=== PATIENT | female | born 2000 | race Caucasian/White ===

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

== ENCOUNTER 2022-04-29 17:37 | Emergency (ER) | payer SELFPAY ==
[2022-04-29 17:38] VITALS: BP 132/83; PULSE 107; RESP 16; TEMP 36.6; O2SAT 97; BMI 31.8
--- NOTE | 2022-04-29 18:23 | EDS_ITS ---
HPI HPI - GI History of Present Illness Chief Complaint: Abd Pain Abdominal Pain/Flank Pain Onset: Weeks Context: Gradual Onset Timing: Intermittent and Lasts (Hours) Quality: Cramping Location: RLQ and LLQ Worsened by: - (Having a bowel movement) Relieved by: Nothing Nausea/Vomiting/Emesis GI Symptom: Positive for Nausea; Negative for Vomiting Diarrhea/Melena/Hematochezia GI Symptom: Negative for Diarrhea, Melena or Hematochezia Associated Symptoms Associated Symptoms: Positive for Dysuria; Negative for Frequency or Hematuria LMP: Current Narrative Narrative: Patient presents with abdominal pain that has been getting worse over the past few weeks. Patient states it gradually got worse. Patient states it is intermittent. Patient states that sometimes it would last for several hours. Patient describes her pain as cramping. Patient states pain is over the lower abdomen. Patient states it is worse whenever she tries to have a bowel movement. Patient admits to some subjective chills whenever she tries to have a bowel movement. Patient admits to nausea but denies any vomiting. Patient denies any diarrhea, melena, or hematochezia. Patient admits to some mild dysuria. Patient states she is currently on her menstrual cycle. [facility] Medical History Anxiety Home Medications cephalexin 500 mg capsule 500 mg PO Q6 #12 CAPSULES 04/29/22 [Rx Last Taken Unknown] norgestimate 0.25 mg-ethinyl estradiol 35 mcg tablet (Sprintec (28)) 1 tab PO DAILY 04/29/22 [History Last Taken Unknown] Allergy/AdvReac Type Severity Reaction Status Date / Time No Known Allergies Allergy Verified 04/29/22 17:38 Social History Smoking Status: Current every day smoker tobacco type: cigarettes EXAM Physical Exam Const Vital Signs: 04/29/22 17:38 Temperature 97.9 F Temperature Source Temporal Pulse Rate 107 H Respiratory Rate 16 Blood Pressure 132/83 H Blood Pressure Mean 99 Pulse Ox 97 Oxygen Delivery Method Room Air Positive well nourished and well developed General Appearance ED: well developed HEENT Reports moist mucous membranes Neck supple and no JVD Resp normal respiratory effort and clear to auscultation bilaterally Cardio regular rate, regular rhythm and no murmurs GI normal to inspection, nondistended, normoactive bowel sounds Palpation: soft and tender epigastric, LLQ, RLQ, LUQ, RUQ, periumbilical and suprapubic; Negative for guarding or rebound tenderness present Extremity normal to inspection General Extremety ED: Negative for edema or tenderness General Extremity: Negative for edema Neuro oriented x3, CN's II-XII intact bilaterally and no sensory deficits noted Sensorium / Orientation: alert Motor Exam: strength 5/5 throughout Psych mental status grossly normal Skin no rashes or lesions noted MDM MDM MDM Narrative Medical decision making narrative: Patient was given IV fluids and Zofran here. CBC shows a slight leukocytosis of 11.9. Hemoglobin was 11.1 and hematocrit 35.1. Platelets were normal. Comprehensive metabolic profile showed mild hypokalemia of 3.2. Anion gap was normal. Glucose was normal. Lipase was normal. Serum hCG was negative. Urinalysis shows a leukocyte esterases of 100 with 10-25 white blood cells and 1+ bacteria. Urine culture was ordered. Patient was given a prescription for Keflex. Patient was instructed to follow-up with her primary care physician in 3 to 5 days for reevaluation. Patient was also given a prescription for omeprazole. Patient understood and was agreeable with the plan. All questions were answered. Lab Data Attestation: I reviewed the patient's lab results. Labs: Laboratory Results - last 24 hr 04/29/22 04/29/22 04/29/22 18:15 18:15 18:15 WBC 11.9 H RBC 4.46 Hgb 11.1 L Hct 35.1 L MCV 78.7 L MCH 24.9 L MCHC 31.6 L RDW Std Deviation 50.5 H RDW Coeff of Nahum 17.6 H Plt Count 321 MPV 10.6 Immature Gran % (Auto) 0.300 Neut % (Auto) 70.5 H Lymph % (Auto) 18.9 L [place] % (Auto) 6.2 Eos % (Auto) 3.8 Baso % (Auto) 0.3 Absolute Neuts (auto) 8.4 H Absolute Lymphs (auto) 2.25 Nucleated RBC % 0 Sodium 140 Potassium 3.2 L Chloride 109 H Carbon Dioxide 25.0 Anion Gap 6 BUN 9 Creatinine 0.79 Estim Creat Clear Calc 93.97 Est GFR (MDRD) Af Amer 119 Est GFR (MDRD) Non-Af 98 BUN/Creatinine Ratio 11.4 Glucose 114 H Calcium 8.8 Total Bilirubin 0.30 AST 21 ALT 23 Alkaline Phosphatase 50 Total Protein 7.5 Albumin 3.4 Globulin 4.1 Albumin/Globulin Ratio 0.8 L Lipase 65 L Serum , Qual NEGATIVE Urine Color Urine Clarity Urine pH Ur Specific [place] Urine Protein Urine Glucose (UA) Urine Ketones Urine Occult Blood Urine Nitrite Urine Bilirubin Urine Urobilinogen Ur Leukocyte Esterase Urine RBC Urine WBC Ur Squamous Epith Cells Urine Bacteria Urine Mucus 04/29/22 18:15 WBC RBC Hgb Hct MCV MCH MCHC RDW Std Deviation RDW Coeff of [place]um Plt Count MPV Immature Gran % (Auto) Neut % (Auto) Lymph % (Auto) [place] % (Auto) Eos % (Auto) Baso % (Auto) Absolute Neuts (auto) Absolute Lymphs (auto) Nucleated RBC % Sodium Potassium Chloride Carbon Dioxide Anion Gap BUN Creatinine Estim Creat Clear Calc Est GFR (MDRD) Af Amer Est GFR (MDRD) Non-Af BUN/Creatinine Ratio Glucose Calcium Total Bilirubin AST ALT Alkaline Phosphatase Total Protein Albumin Globulin Albumin/Globulin Ratio Lipase Serum , Qual Urine Color Yellow Urine Clarity Clear Urine pH 5.0 Ur Specific [place] 1.025 Urine Protein 30 H Urine Glucose (UA) Normal Urine Ketones 15 H Urine Occult Blood 250 H Urine Nitrite Negative Urine Bilirubin 1 H Urine Urobilinogen 1 H Ur Leukocyte Esterase 100 H Urine RBC 0-5 SEEN Urine WBC 10-25 SEEN Ur Squamous Epith Cells 0-5 SEEN Urine Bacteria 1+ Urine Mucus 0 SEEN Discharge Plan Triage Chief Complaint: Abd Pain ED Provider: Ralph Zamudio Dx/Rx/DC Orders Clinical Impression: Upper abdominal pain, Urinary tract infection Instructions: ED Abdominal Pain Unkn Cause Fem, ED CYSTITIS Female Adult Prescriptions: New cephalexin [cephalexin] 500 mg capsule 500 mg PO Q6 Qty: 12 0RF No Action norgestimate-ethinyl estradiol [Sprintec (28)] 0.25-35 mg-mcg Tablet 1 tab PO DAILY Stand Alone Forms: ED Work / School Excuse Primary Care Provider: Care Physician,No Primary Referrals: Linsey Ríos MD [STAFF PHYSICIAN] - 5-7 Days Care Physician,No Primary [Primary Care Provider] - Disposition Disposition: Home, Self Care
[2022-04-29 18:33] LABS: Mucous, Urine 0 SEEN /hpf (<or=2+)
[2022-04-29] MEDS: Ondansetron 4 MG/2 ML Vial IV (18:33)
[2022-04-29] MEDS: 0.9% Normal Saline 1,000 ML 1000 ML IV (18:33)
[2022-04-29 18:35] LABS: Absolute Lymphocyte Count 2.25 X10^3/uL (0.83-4.51); Absolute Neutrophil Count 8.4 X10^3/uL (2.0-7.7); Basophil# 0.03 X10^3/uL; Basophil% 0.3 % (0-1); Eosinophil# 0.45 X10^3/uL; Eosinophils% 3.8 % (0-5); Hematocrit 35.1 % (37-47); Hemoglobin 11.1 g/dL (12.0-15.0); Lymphocyte # 2.25 X10^3/ul (0.83-4.51); Lymphocyte % 18.9 % (19-41); Mean Corp Hgb Conc 31.6 g/dL (32-36); Mean Corpuscular Hgb 24.9 pg (27.0-32.0); Mean Corpuscular Volume 78.7 fL (81-99); Mean Platelet Vol. 10.6 fl (6.2-12.0); Monocyte# 0.74 X10^3/uL; Monocyte% 6.2 % (0-10); NRBC Flagged by Analyzer 0 % (0-5); Neutrophil # 8.39 X10^3/uL (2.7-7.7); Neutrophil % 70.5 % (47-70); Platelet Count 321 K/mm3 (150-450); RBC Distribution Width CV 17.6 % (11.6-14.6); RBC Distribution Width SD 50.5 fl (35.1-43.9); Red Blood Count 4.46 M/mm3 (4.2-5.4); White Blood Count 11.9 K/mm3 (4.4-11.0)
[2022-04-29 18:43] LABS: Color, Urine Yellow (Yellow); Glucose, Dipstick Normal (Normal); Ketone-Dipstick 15 mg/dl (Negative); Leukocyte Esterase-Dipstick 100 /ul (Negative); Nitrite-Dipstick Negative (Negative); Occult Blood-Urine 250 /ul (Negative); Protein-Dipstick 30 mg/dl (Negative); Specific Gravity, Urine 1.025 (1.002-1.030); Urine Clarity Clear (Clear); Urine Urobilinogen 1 mg/dl (Normal)
[2022-04-29 18:45] LABS: Urine Bilirubin Dipstick 1 mg/dL (Negative)
[2022-04-29 18:54] LABS: ALB/GLOB Ratio 0.8 RATIO (0.9-2.4); AST(SGOT) 21 U/L (15-37); Alanine Aminotransfer ALT/SGPT 23 U/L (13-56); Albumin, Serum 3.4 g/dL (3.2-5.0); Alkaline Phosphatase 50 U/L (45-117); Anion Gap 6 (5-15); BUN 9 mg/dL (7-18); BUN/Creat Ratio 11.4 RATIO (10-20); Bacteria 1+ /hpf (None Seen); Calcium,Total 8.8 mg/dL (8.5-10.1); Chloride 109 mmol/L (98-107); Creatinine, Serum 0.79 mg/dL (0.55-1.02); EST Glomerular Filtration Rate 98 mL/min (>60); Est Glom Filt Rate - Afr Amer 119 mL/min (>60); Estimated Creatinine Clearance 93.97 ml/min; Globulin 4.1 g/dL (2.2-4.2); Glucose 114 mg/dL (74-106); Lipase 65 U/L (73-393); Potassium 3.2 mmol/L (3.5-5.1); Protein, Total 7.5 g/dL (6.4-8.2); Red Blood Cells-Urine 0-5 SEEN /hpf (0-5); Sodium Level 140 mmol/L (136-145); Squamous Epithelial Cells - UA 0-5 SEEN /hpf (5-10); White Blood Cells 10-25 SEEN /hpf (0-5)
[2022-04-29 18:57] LABS: Internal QC Validated? YES +Cl - CLEAR BKGD; Pregnancy, Serum, hCG Quali. NEGATIVE Negative
[2022-04-29 19:24] VITALS: RESP 16
[2022-04-29] MEDS: Cephalexin 500 MG Capsule PO (19:31)
== END 2022-04-29 19:36 | disposition home or self-care (01) ==
PROVIDERS: Emergency Provider Emergency Medicine; Visit Provider Emergency Medicine
DX: N39.0 Urinary tract infection, site not specified (principal); F17.210 Nicotine dependence, cigarettes, uncomplicated; R11.0 Nausea; R30.0 Dysuria
CPT/HCPCS: 80053; 81001; 83690; 84703; 85025; 87086; 99283; J7030; A4216; J2405

== ENCOUNTER 2022-05-03 16:51 | Emergency (ER) | payer SELFPAY ==
[2022-05-03 16:53] VITALS: BP 132/91; PULSE 109; RESP 16; TEMP 37; O2SAT 98; BMI 31.8
[2022-05-03 16:55] VITALS: BP 132/91; PULSE 109; RESP 16; TEMP 37; O2SAT 98
--- NOTE | 2022-05-03 17:31 | CT_ITS ---
EXAM: CT ABDOMEN AND PELVIS WITHOUT INTRAVENOUS CONTRAST CLINICAL INDICATION: Pain TECHNIQUE: Helically acquired images were obtained of the abdomen and pelvis without intravenous contrast. This CT exam was performed using one or more of the following dose reduction techniques: automated exposure control, adjustment of the mA and/or kV according to patient size, and/or use of iterative reconstruction technique. This report was created using [employer] report generation technology. RADIATION DOSE: CTDIvol = 7.49 mGy, DLP = 381.79 mGy-cm. COMPARISON: 10/19/2021. FINDINGS: LOWER THORAX: Unremarkable. Lung bases are clear. No cardiomegaly. No significant pericardial effusion. ABDOMEN: LIVER: Unremarkable. Homogeneous. GALLBLADDER AND BILE DUCTS: Unremarkable. No calcified gallstones. No gallbladder distention or wall edema. No intra- or extrahepatic biliary ductal dilation. PANCREAS: Unremarkable. No focal cystic mass. SPLEEN: Unremarkable. Normal size without focal cystic or solid mass. ADRENALS: Unremarkable. No nodules. KIDNEYS AND URETERS: Unremarkable. Normal renal size and position. No hydronephrosis. STOMACH AND BOWEL: Unremarkable. No stomach or bowel distention. No focal inflammatory change. PELVIS: APPENDIX: Normal appendix. BLADDER: Unremarkable. REPRODUCTIVE: Previously noted left-sided tubo-ovarian abscess has resolved. ABDOMEN and PELVIS: INTRAPERITONEAL SPACE: Unremarkable. No ascites or other fluid collection. No free air. BONES/JOINTS: Unremarkable. No suspicious lytic or blastic abnormality. SOFT TISSUES: Unremarkable. No discrete abdominal or pelvic wall hernia. VASCULATURE: Unremarkable. Abdominal aorta is non-dilated. LYMPH NODES: Unremarkable. No enlarged lymph nodes. CT/Abdomen/Pelvis without Cont IMPRESSION: 1. Previously noted left-sided tubo-ovarian abscess has resolved. 2. No acute abdominal pelvic abnormality. Electronically Signed: Mac Badillo MD at 19:35 EDT ,
--- NOTE | 2022-05-03 17:32 | EDS_ITS ---
HPI HPI - GI History of Present Illness Chief Complaint: Flank Pain Detail of Chief Complaint: Abdominal pain Informant: patient Abdominal Pain/Flank Pain Maximum Severity: 05/27 Narrative Narrative: Patient presents to the emergency department complaint of abdominal pain that she said for about a month and a half off and on. Patient states that she started taking oral contraceptive Sprintec and ever since that she did that she noticed more discomfort to the right side of her abdomen. Patient was seen in the emergency department 4 days ago for abdominal pain and had lab work-up and diagnosed with a UTI and started on Keflex. Patient states she started having vaginal bleeding a week ago and continues to bleed and passing small clots. She does not have an [facility] fevers. She denies diarrhea. She denies blood in her stool or black tarry stool. No history of kidney stones. [facility] Medical History Anxiety Home Medications cephalexin 500 mg capsule 500 mg PO Q6 #12 CAPSULES 04/29/22 [Rx Last Taken Unknown] norgestimate 0.25 mg-ethinyl estradiol 35 mcg tablet (Sprintec (28)) 1 tab PO DAILY 04/29/22 [History Last Taken Unknown] Allergy/AdvReac Type Severity Reaction Status Date / Time No Known Allergies Allergy Verified 05/03/22 16:55 Social History Smoking Status: Current every day smoker tobacco type: cigarettes ROS ROS ED Review of Systems ROS Unobtainable: other Constitutional Constitutional ED: Reports lethargy; Denies chills, fever(s), sweats or weight loss Eyes Eyes: Denies blurry vision, change in vision or diplopia ENT ENT ED: Denies rhinorrhea or sore throat Cardiovascular Cardiovascular: Reports chest pain and racing heartbeat; Denies orthopnea Respiratory/Chest Respiratory/Chest: Reports dyspnea and dyspnea on exertion; Denies cough, orthopnea or sputum Gastrointestinal Gastrointestinal: Reports abdominal pain; Denies diarrhea, nausea or vomiting Genitourinary Genitourinary ED: Reports other Details: Vaginal bleeding ; Denies dysuria, hematuria or urinary frequency Musculoskeletal Musculoskeletal: Denies arthralgias, back pain, myalgias or neck pain Integumentary Denies abscess, Abrasions or rash Neurologic Neurologic: Denies headache(s) or weakness Psychiatric Psychiatric: Denies anxiety, depression or suicidal thoughts Endocrine Endocrinology: Denies polydipsia, polyphagia or polyuria Hematologic/Lymphatic Hematologic/Lymphatic: Denies easy bleeding, easy bruising or lymphadenopathy Allergic/Immunologic Allergic/Immunologic ED: Denies mouth swelling, tongue swelling or urticaria EXAM Physical Exam Const Vital Signs: 05/03/22 16:53 05/03/22 16:55 05/03/22 17:58 Temperature 98.6 F 98.6 F 98.6 F Temperature Source Temporal Temporal Temporal Pulse Rate 109 H 109 H 109 H Respiratory Rate 16 16 16 Blood Pressure 132/91 H 132/91 H 132/91 H Blood Pressure Mean 104 Pulse Ox 98 98 98 Oxygen Delivery Method Room Air Room Air Room Air 05/03/22 19:00 Temperature Temperature Source Pulse Rate 71 Respiratory Rate 16 Blood Pressure 98/67 Blood Pressure Mean 77 Pulse Ox 99 Oxygen Delivery Method Room Air Positive well nourished and well developed General Appearance ED: well developed and NAD HEENT Reports TM's clear and moist mucous membranes normocephalic and atraumatic; Negative for trauma or tenderness Tympanic Membrane ED: Yes TM's clear Eyes PERRL and EOMs intact bilaterally General Eye ED: Negative for pale conjunctiva or scleral icterus Neck no lymphadenopathy, supple and no JVD General: Negative for tenderness Chest Wall inspection of chest normal and palpation of chest normal Chest: Negative for tenderness Resp normal respiratory effort and clear to auscultation bilaterally Effort and Inspection: Negative for respiratory distress or pain with movement Auscultation: Negative for rhonchi, wheezes or diminished lung sounds Cardio regular rate, regular rhythm, S1 normal heart sound, S2 normal heart sound and no murmurs Peripheral Pulses: pulses 2+ throughout GI normal to inspection, nondistended, normoactive bowel sounds, soft to palpation, non-distended and no masses GI Narrative: Tenderness palpation over the right lower quadrant with some guarding. She also some mild CVA tenderness on the right. There is no rebound, rigidity, or frail signs. Back/Spine no CVA tenderness and no thoracic nor lumbar tenderness Extremity normal to inspection General Extremety ED: Negative for edema General Extremity: Negative for edema Neuro oriented x3, CN's II-XII intact bilaterally, no sensory deficits noted and gait normal Sensorium / Orientation: awake, alert, oriented to person, oriented to place and oriented to time Motor Exam: strength 5/5 throughout and strength abnormal Psych mental status grossly normal Skin no rashes or lesions noted and no wounds MDM MDM MDM Narrative Medical decision making narrative: IV line established on arrival. Patient was given Toradol. Lab work-up was unremarkable. hCG was negative. Urinalysis was normal. CT scan of the M pelvis without contrast obtained showed no acute disease process. This point etiology of her pain is unclear. Patient will be given referral to [facility] for follow-up. Patient advised to return if worsening pain, fever, vomiting, or condition should worsen anyway. Lab Data Attestation: I reviewed the patient's lab results. Labs: Laboratory Results - last 24 hr 05/03/22 05/03/22 05/03/22 17:56 17:56 17:56 WBC 8.3 RBC 4.39 Hgb 11.2 L Hct 35.6 L MCV 81.1 MCH 25.5 L MCHC 31.5 L RDW Std Deviation 50.7 H RDW Coeff of [place] 17.2 H Plt Count 328 MPV 11.6 Immature Gran % (Auto) 0.200 Neut % (Auto) 55.4 Lymph % (Auto) 26.5 [place] % (Auto) 9.6 Eos % (Auto) 7.7 H Baso % (Auto) 0.6 Absolute Neuts (auto) 4.6 Absolute Lymphs (auto) 2.21 Nucleated RBC % 0 Sodium 141 Potassium 3.8 Chloride 109 H Carbon Dioxide 27.0 Anion Gap 5 BUN 9 Creatinine 0.75 Estim Creat Clear Calc 98.98 Est GFR (MDRD) Af Amer 126 Est GFR (MDRD) Non-Af 104 BUN/Creatinine Ratio 12.0 Glucose 95 Lactic Acid 1.5 Calcium 9.0 Total Bilirubin 0.30 AST 22 ALT 20 Alkaline Phosphatase 52 Total Protein 7.1 Albumin 3.1 L Globulin 4.0 Albumin/Globulin Ratio 0.8 L Serum , Qual Urine Color Urine Clarity Urine pH Ur Specific [place] Urine Protein Urine Glucose (UA) Urine Ketones Urine Occult Blood Urine Nitrite Urine Bilirubin Urine Urobilinogen Ur Leukocyte Esterase Urine RBC Urine WBC Ur Squamous Epith Cells Urine Bacteria Urine Mucus 05/03/22 05/03/22 17:56 17:57 WBC RBC Hgb Hct MCV MCH MCHC RDW Std Deviation RDW Coeff of [place] Plt Count MPV Immature Gran % (Auto) Neut % (Auto) Lymph % (Auto) [place] % (Auto) Eos % (Auto) Baso % (Auto) Absolute Neuts (auto) Absolute Lymphs (auto) Nucleated RBC % Sodium Potassium Chloride Carbon Dioxide Anion Gap BUN Creatinine Estim Creat Clear Calc Est GFR (MDRD) Af Amer Est GFR (MDRD) Non-Af BUN/Creatinine Ratio Glucose Lactic Acid Calcium Total Bilirubin AST ALT Alkaline Phosphatase Total Protein Albumin Globulin Albumin/Globulin Ratio Serum , Qual NEGATIVE Urine Color Yellow Urine Clarity Clear Urine pH 6.0 Ur Specific [place] 1.015 Urine Protein 15 H Urine Glucose (UA) Normal Urine Ketones Negative Urine Occult Blood 250 H Urine Nitrite Negative Urine Bilirubin Negative Urine Urobilinogen Normal Ur Leukocyte Esterase Negative Urine RBC 5-10 SEEN Urine WBC 0 SEEN Ur Squamous Epith Cells 0 SEEN Urine Bacteria 0 SEEN Urine Mucus 0 SEEN Radiography Diagnostic Testing: Clinical Impression(s) from Imaging Studies Abdomen/Pelvis CT 05/03/22 17:31 IMPRESSION: 1. Previously noted left-sided tubo-ovarian abscess has resolved. 2. No acute abdominal pelvic abnormality. Electronically Signed: Mac Badillo MD at 19:35 EDT , Discharge Plan Triage Chief Complaint: Flank Pain ED Provider: Miriam Smith Dx/Rx/DC Orders Clinical Impression: Abdominal pain Instructions: ED Flank Pain, Uncertain Cause Prescriptions: No Action norgestimate-ethinyl estradiol [Sprintec (28)] 0.25-35 mg-mcg Tablet 1 tab PO DAILY cephalexin [cephalexin] 500 mg capsule 500 mg PO Q6 Qty: 12 0RF Primary Care Provider: Care Physician,No Primary Referrals: Guadalupe Grossman MD [STAFF PHYSICIAN] - 3-5 Days Care Physician,No Primary [Primary Care Provider] - Disposition Disposition: Home, Self Care
[2022-05-03 17:58] VITALS: BP 132/91; PULSE 109; RESP 16; TEMP 37; O2SAT 98
[2022-05-03] MEDS: Ketorolac 30 MG/ML Syringe IV (18:04)
[2022-05-03] MEDS: 0.9% Normal Saline 1,000 ML 125 ML IV (18:04)
[2022-05-03 18:09] LABS: Bacteria 0 SEEN /hpf (None Seen); Mucous, Urine 0 SEEN /hpf (<or=2+); Squamous Epithelial Cells - UA 0 SEEN /hpf (5-10); White Blood Cells 0 SEEN /hpf (0-5)
[2022-05-03 18:11] LABS: Absolute Lymphocyte Count 2.21 X10^3/uL (0.83-4.51); Absolute Neutrophil Count 4.6 X10^3/uL (2.0-7.7); Basophil# 0.05 X10^3/uL; Basophil% 0.6 % (0-1); Eosinophil# 0.64 X10^3/uL; Eosinophils% 7.7 % (0-5); Hematocrit 35.6 % (37-47); Hemoglobin 11.2 g/dL (12.0-15.0); Lymphocyte # 2.21 X10^3/ul (0.83-4.51); Lymphocyte % 26.5 % (19-41); Mean Corp Hgb Conc 31.5 g/dL (32-36); Mean Corpuscular Hgb 25.5 pg (27.0-32.0); Mean Corpuscular Volume 81.1 fL (81-99); Mean Platelet Vol. 11.6 fl (6.2-12.0); Monocyte% 9.6 % (0-10); NRBC Flagged by Analyzer 0 % (0-5); Neutrophil # 4.62 X10^3/uL (2.7-7.7); Neutrophil % 55.4 % (47-70); Platelet Count 328 K/mm3 (150-450); RBC Distribution Width CV 17.2 % (11.6-14.6); RBC Distribution Width SD 50.7 fl (35.1-43.9); Red Blood Count 4.39 M/mm3 (4.2-5.4); White Blood Count 8.3 K/mm3 (4.4-11.0)
[2022-05-03 18:12] LABS: Color, Urine Yellow (Yellow); Glucose, Dipstick Normal (Normal); Ketone-Dipstick Negative (Negative); Leukocyte Esterase-Dipstick Negative /ul (Negative); Nitrite-Dipstick Negative (Negative); Occult Blood-Urine 250 /ul (Negative); Protein-Dipstick 15 mg/dl (Negative); Specific Gravity, Urine 1.015 (1.002-1.030); Urine Bilirubin Dipstick Negative (Negative); Urine Clarity Clear (Clear); Urine Urobilinogen Normal (Normal)
[2022-05-03 18:18] LABS: Red Blood Cells-Urine 5-10 SEEN /hpf (0-5)
[2022-05-03 18:38] LABS: Internal QC Validated? YES +Cl - CLEAR BKGD; Pregnancy, Serum, hCG Quali. NEGATIVE Negative
[2022-05-03 18:40] LABS: Lactic Acid 1.5 mmol/L (0.4-1.9)
[2022-05-03 18:53] LABS: ALB/GLOB Ratio 0.8 RATIO (0.9-2.4); AST(SGOT) 22 U/L (15-37); Alanine Aminotransfer ALT/SGPT 20 U/L (13-56); Albumin, Serum 3.1 g/dL (3.2-5.0); Alkaline Phosphatase 52 U/L (45-117); Anion Gap 5 (5-15); BUN 9 mg/dL (7-18); Chloride 109 mmol/L (98-107); Creatinine, Serum 0.75 mg/dL (0.55-1.02); EST Glomerular Filtration Rate 104 mL/min (>60); Est Glom Filt Rate - Afr Amer 126 mL/min (>60); Estimated Creatinine Clearance 98.98 ml/min; Glucose 95 mg/dL (74-106); Potassium 3.8 mmol/L (3.5-5.1); Protein, Total 7.1 g/dL (6.4-8.2); Sodium Level 141 mmol/L (136-145)
[2022-05-03 19:00] VITALS: BP 98/67; PULSE 71; RESP 16; O2SAT 99
[2022-05-03 20:16] VITALS: RESP 16
== END 2022-05-03 20:18 | disposition home or self-care (01) ==
PROVIDERS: Emergency Provider Emergency Medicine; Visit Provider Emergency Medicine
DX: R10.9 Unspecified abdominal pain (principal); F17.210 Nicotine dependence, cigarettes, uncomplicated
CPT/HCPCS: 74176; 80053; 81001; 83605; 84703; 85025; 96361; 96374; 99283; J7030; A4216

== ENCOUNTER 2023-03-12 17:38 | Emergency (ER) | payer SELFPAY ==
[2023-03-12 17:39] VITALS: BP 121/69; PULSE 109; RESP 14; TEMP 37.2; O2SAT 94; BMI 30.8
--- NOTE | 2023-03-12 19:45 | ED.RN ---
SO states they are leaving, decline waiting any longer to be seen. Pt and SO ambulated out of dept.
== END 2023-03-12 19:40 | disposition left against medical advice (07) ==
LOC: ED 20:15
DX: T14.90XA Injury, unspecified, initial encounter (principal); W54.0XXA Bitten by dog, initial encounter; Z53.21 Procedure and treatment not carried out due to patient leaving prior to being seen by health care provider

== ENCOUNTER 2023-03-13 15:48 | Emergency (ER) | payer SELFPAY ==
[2023-03-13 15:49] VITALS: BP 114/69; PULSE 88; RESP 16; TEMP 36.8; O2SAT 99; BMI 30.8
--- NOTE | 2023-03-13 16:03 | EDS_ITS ---
HPI <KINA King - Last Filed: 03/13/23 16:06> History of Present Illness Chief Complaint: Bite Narrative Narrative: 2 days ago patient leaned over to see the stray dog had a collar and a bit her left cheek. She has a laceration under the eye and a puncture wound. She cleansed it with hydrogen peroxide and applied topical antibiotic ointment and Steri-Strips. Today it seemed more red and swollen prompting her to come in. No fever or chills. Tetanus is up-to-date. PFSH <KINA King - Last Filed: 03/13/23 16:06> [facility] Medical History Anxiety Home Medications cephalexin 500 mg capsule 500 mg PO Q6 #12 CAPSULES 04/29/22 [Rx Last Taken Unknown] norgestimate 0.25 mg-ethinyl estradiol 35 mcg tablet (Sprintec (28)) 1 tab PO DAILY 04/29/22 [History Last Taken Unknown] amoxicillin 875 mg-potassium clavulanate 125 mg tablet 1 tab PO BID 10 days #20 tabs 03/13/23 [Rx Last Taken Unknown] Allergy/AdvReac Type Severity Reaction Status Date / Time No Known Allergies Allergy Verified 03/13/23 15:53 Social History Smoking Status: Current every day smoker tobacco type: cigarettes ROS <KINA King - Last Filed: 03/13/23 16:06> ROS ED ROS Narrative Constitutional: Negative for fever, chills, malaise. Neuro: Negative for motor/sensory dysfunction. Skin: Positive for wound. EXAM <KINA King Last Filed: 03/13/23 16:06> Physical Exam Narrative Exam Narrative: CONST: Patient sitting in no acute distress. EYES: Normal inspection. NECK: Normal inspection. RESP: No respiratory distress, CTAB. CVS: Regular rate and rhythm, no murmur, no gallop. SKIN: 2 cm laceration left lower eyelid that is approximated. Tiny amount of yellow granulation tissue on the lateral aspect. There is surrounding soft tissue swelling and small amount of redness. She also has single puncture wound left lower cheek that does not appear infected. EXTREMITIES: Normal appearance, no pedal edema. NEURO: Oriented x4. PSYCH: Normal affect. Const Vital Signs: 03/13/23 15:49 Temperature 98.3 F Temperature Source Temporal Pulse Rate 88 Respiratory Rate 16 Blood Pressure 114/69 Blood Pressure Mean 84 Pulse Ox 99 Oxygen Delivery Method Room Air <Dr. Ralph Zamudio, - Last Filed: 03/13/23 16:12> Physical Exam Const Vital Signs: 03/13/23 15:49 Temperature 98.3 F Temperature Source Temporal Pulse Rate 88 Respiratory Rate 16 Blood Pressure 114/69 Blood Pressure Mean 84 Pulse Ox 99 Oxygen Delivery Method Room Air MDM <KINA King - Last Filed: 03/13/23 16:06> [facility] Narrative Medical decision making narrative: Patient went up to a stray dog 2 days ago and was bitten on the left cheek. Has a small laceration under the left eyelid that is already closed but does appear slightly infected with swelling and erythema. Also a small puncture wound on the left lower cheek. There is no evidence of abscess. She will be placed on Augmentin and first dose was given here. She was instructed to return for any worsening signs of infection and was discharged in stable condition. <Dr. Ralph Zamudio, DO - Last Filed: 03/13/23 16:12> [facility] Treatment and Re-Evaluation :: I have personally performed a face to face assessment of the patient and have reviewed the SANTA Note. I performed a substantive portion of the visit including all aspects of the following. My armenta findings include: History: Patient presents with dog bite to her face that occurred 2 days ago. Patient reached down to look and check to see if a stray dog had a collar. Patient states the dog bit her in her face. Patient states that the wounds were healing but she started noticing some drainage from the lateral aspect of the laceration below her left eye. Patient denies any fevers or chills. Patient denies any visual changes. Patient does admit to some swelling over this area. Exam: Vital signs are stable. Patient is afebrile. Patient is in no acute distress. Skin is warm and dry. There is a healing laceration over the left infraorbital area just below the eyelid. There is no involvement of the eyelid itself. There is some mild erythema around this area. There is some yellowish discharge from the lateral aspect of the wound. There is also a puncture wound noted over the left cheek. There is no erythema or discharge from this wound. Oral mucosa is pink and moist. Oropharynx is clear. Airway is patent. Neck is supple. Trachea is midline. There is no JVD. Medical Decision Making: Patient was advised that this may be starting to become infected. Patient was given a dose of Augmentin here. Patient was given a prescription for Augmentin. Patient was instructed to keep the wound clean and dry. Patient was instructed to follow-up with her primary care physician in 3 to 5 days for wound recheck. Patient understood and was agreeable with the plan. All questions were answered. Discharge Plan Triage Chief Complaint: Bite ED Midlevel Provider: Meri Hurt ED Provider: Ralph Zamudio Dx/Rx/DC Orders Clinical Impression: Dog bite of face Instructions: ED Dog Bite Prescriptions: New amoxicillin-pot clavulanate 875-125 mg tablet 1 tab PO BID 10 Days Qty: 20 0RF No Action norgestimate-ethinyl estradiol [Sprintec (28)] 0.25-35 mg-mcg Tablet 1 tab PO DAILY cephalexin [cephalexin] 500 mg capsule 500 mg PO Q6 Qty: 12 0RF Primary Care Provider: Care Physician,No Primary Referrals: Care Physician,No Primary [Primary Care Provider] - Activity Restrictions/Additional Instructions: Antibiotics and keep clean. Return to ER if you develop worsening redness, swelling, pain or fever Disposition Disposition: Home, Self Care
[2023-03-13 16:06] VITALS: BP 124/76; PULSE 78; RESP 16; TEMP 36.6; O2SAT 99
[2023-03-13] MEDS: Amox/Clavulanate 875 MG Tablet PO (16:22)
== END 2023-03-13 16:28 | disposition home or self-care (01) ==
LOC: ED 16:27
PROVIDERS: Emergency Provider Emergency Medicine; Visit Provider Emergency Medicine
DX: S01.412A Laceration without foreign body of left cheek and temporomandibular area, initial encounter (principal); S01.432A Puncture wound without foreign body of left cheek and temporomandibular area, initial encounter; W54.0XXA Bitten by dog, initial encounter; F17.210 Nicotine dependence, cigarettes, uncomplicated
CPT/HCPCS: 99283

== ENCOUNTER 2023-04-17 16:31 | Emergency (ER) | payer SELFPAY ==
[2023-04-17 16:32] VITALS: BP 139/84; PULSE 69; RESP 20; TEMP 36.4; O2SAT 98; BMI 31.3
--- NOTE | 2023-04-17 17:10 | EDS_ITS ---
HPI History of Present Illness Chief Complaint: Wound Check Informant: patient Narrative Narrative: Patient presents for a wound check. She suffered a dog bite to her face in late February. On March 13 she was seen here and placed on 10-day course of Augmentin. She states she completed 5 days of the antibiotic but it made her have abdominal cramping and she stopped taking it. The wounds seem to heal well. Over the last day or so she has noted some increased redness and swelling around the area and was concerned it may be getting infected again. [facility] Medical History Anxiety Dog bite Home Medications cephalexin 500 mg capsule 500 mg PO Q6 #12 CAPSULES 04/29/22 [Rx Last Taken Unknown] norgestimate 0.25 mg-ethinyl estradiol 35 mcg tablet (Sprintec (28)) 1 tab PO DAILY 04/29/22 [History Last Taken Unknown] amoxicillin 875 mg-potassium clavulanate 125 mg tablet 1 tab PO BID 10 days #20 tabs 03/13/23 [Rx Last Taken Unknown] Allergy/AdvReac Type Severity Reaction Status Date / Time amoxicillin AdvReac Mild Abd Verified 04/17/23 16:32 cramps/diarrhea Social History Smoking Status: Current every day smoker tobacco type: cigarettes ROS ROS ED Constitutional Constitutional ED: Denies chills or fever(s) Eyes Eyes: Denies change in vision or discharge from eye(s) ENT ENT ED: Denies discharge from eye(s), rhinorrhea or sore throat Cardiovascular Cardiovascular: Denies chest pain Respiratory/Chest Respiratory/Chest: Denies cough or dyspnea Gastrointestinal Gastrointestinal: Denies abdominal pain, nausea or vomiting Genitourinary Genitourinary ED: Denies dysuria Musculoskeletal Musculoskeletal: Denies back pain or extremity pain Integumentary Reports other Details: Facial wound ; Denies Abrasions or rash Neurologic Neurologic: Denies headache(s) or weakness Psychiatric Psychiatric: Denies anxiety or depression Allergic/Immunologic Allergic/Immunologic ED: Denies lip swelling or urticaria EXAM Physical Exam Const Vital Signs: 04/17/23 16:32 Temperature 97.5 F L Temperature Source Temporal Pulse Rate 69 Respiratory Rate 20 H Blood Pressure 139/84 H Blood Pressure Mean 102 Pulse Ox 98 Oxygen Delivery Method Room Air Positive well nourished and well developed General Appearance ED: well developed HEENT HEENT Narrative: Patient with a healed dog bite just inferior to the left thigh measuring approximate 2.5 cm in length. Scar tissue was noted. There is no fluctuance. No cellulitis. Eyes PERRL and EOMs intact bilaterally Neck no lymphadenopathy Chest Wall inspection of chest normal and palpation of chest normal Resp normal respiratory effort and clear to auscultation bilaterally Cardio regular rate and regular rhythm GI normal to inspection, nondistended, normoactive bowel sounds Extremity normal to inspection Psych mental status grossly normal Skin Skin Narrative: Facial wound as noted above. MDM MDM MDM Narrative Medical decision making narrative: At this time wound does not appear to be infected. I believe that the extra fluid is simply from the healing process. We discussed appropriate wound care a nd techniques to help minimize scarring. She is reassured with this. Discharge Plan Triage Chief Complaint: Wound Check ED Provider: Yasemin Mckeon Dx/Rx/DC Orders Clinical Impression: Encounter for wound re-check Instructions: ED Wound Check (No Infection) Prescriptions: No Action norgestimate-ethinyl estradiol [Sprintec (28)] 0.25-35 mg-mcg Tablet 1 tab PO DAILY cephalexin [cephalexin] 500 mg capsule 500 mg PO Q6 Qty: 12 0RF amoxicillin-pot clavulanate 875-125 mg tablet 1 tab PO BID 10 Days Qty: 20 0RF Primary Care Provider: Care Physician,No Primary Referrals: Care Physician,No Primary [Primary Care Provider] - Disposition Disposition: Home, Self Care
== END 2023-04-17 18:15 | disposition home or self-care (01) ==
LOC: ED 17:27
PROVIDERS: Emergency Provider Emergency Medicine; Visit Provider Emergency Medicine
DX: Z51.89 Encounter for other specified aftercare (principal); R10.9 Unspecified abdominal pain; F17.210 Nicotine dependence, cigarettes, uncomplicated
CPT/HCPCS: 99282

== ENCOUNTER 2023-12-25 15:59 | Emergency (ER) | payer SELFPAY ==
[2023-12-25 16:00] VITALS: BP 129/82; PULSE 86; RESP 16; TEMP 35.8; O2SAT 98; BMI 31.3
--- NOTE | 2023-12-25 16:37 | EDS_ITS ---
<Statement entered by Yasemin Mckeon MD - 12/25/23 17:45> I have personally performed a face to face assessment of the patient and have reviewed the [facility] Note. Patient presents secondary to oral pain. She complains of pain to the roof of her mouth between her molars. She denies actual throat pain. She was reportedly seen at an urgent care previously for the same but continues to have symptoms. She has been using Orajel to help with pain. Patient sitting upright in bed no acute distress. Tolerating secretions well and speaks with a strong voice. Intraoral examination reveals no obvious abnormalities. Roof of the mouth was unremarkable with no masses or discoloration. Mild anterior cervical lymphadenopathy is noted bilaterally. Heart is regular rate and rhythm. Lung sounds are clear. Patient does report some dental pain especially to her molars. She will be treated with antibiotics and referred to ENT for follow-up. She is comfortable this plan. HPI History of Present Illness Chief Complaint: Sore Throat Narrative Narrative: Patient is a 23-year-old female with no significant ankle history presents to the emergency department with mouth pain. Patient is the pain is on the roof of her mouth, goes back to the corners of her mouth. She denies any difficulty swallowing. Patient dates she has a pain when she eats. She denies any fever or chills. Patient she did see an urgent care who told her to take cough drops. Patient is here for reevaluation. She denies any difficulty breathing, denies any exudate in the back of her throat. [facility] Medical History Anxiety Dog bite Home Medications cephalexin 500 mg capsule 500 mg PO Q6 #12 CAPSULES 04/29/22 [Rx Last Taken Unknown] norgestimate 0.25 mg-ethinyl estradiol 35 mcg tablet (Sprintec (28)) 1 tab PO DAILY 04/29/22 [History Last Taken Unknown] amoxicillin 875 mg-potassium clavulanate 125 mg tablet 1 tab PO BID 10 days #20 tabs 03/13/23 [Rx Last Taken Unknown] naproxen 500 mg tablet (Naprosyn) 500 mg PO BID PRN pain #20 tabs 12/25/23 [Rx Last Taken Unknown] penicillin V potassium 500 mg tablet 500 mg PO 4X/DAY 7 days #28 tabs 12/25/23 [Rx Last Taken Unknown] Allergy/AdvReac Type Severity Reaction Status Date / Time amoxicillin AdvReac Mild Abd Verified 12/25/23 16:00 cramps/diarrhea Social History Smoking Status: Current every day smoker tobacco type: cigarettes ROS ROS ED ROS Narrative Constitutional: Negative for fever, chills, weight loss, weakness Eyes: Negative for vision loss, vision change, double vision ENT: Negative for any sore throat, ear pain, congestion. Positive for mouth pain, Cardiovascular: Negative for any chest pain, tightness, palpitations Respiratory: Negative for any cough, sputum production, hemoptysis, dyspnea, dyspnea on exertion, orthopnea Gastrointestinal: Negative for any abdominal pain, nausea, vomiting, diarrhea, constipation, blood in stool, blood in vomit : Negative for any urinary frequency, dysuria, retention, blood in urine Muscle skeletal: Negative for any neck pain, back pain Neurological: Negative for any headache, syncope, dizziness Skin: Negative for any rashes, itching, abrasions, lacerations Psychiatric: Negative for any depression, anxiety, stress, suicidal ideation, homicidal ideation Hematologic: Negative for any excessive bruising, easy bleeding EXAM Physical Exam Narrative Exam Narrative: Vital signs reviewed. HEET: Head normocephalic atraumatic, TMs clear bilaterally. Posterior pharynx is clear, moist mucous membranes. Nares clear bilaterally. Roof of the mouth was unremarkable, there is no exudate, there was no abscess formation, there is no any petechial rash, swelling. Posterior pharynx was unremarkable. Neck: Supple with no lymphadenopathy or tenderness. No signs of meningismus. Cardiac: Regular rate and rhythm no murmurs gallops or rubs, equal peripheral pulses bilaterally. Respiratory: Lungs clear to auscultation bilaterally. No chest tenderness. Abdomen: Soft, nontender, nondistended. No abdominal bruit or pulsatile masses. No hepatosplenomegaly Extremities: No peripheral edema, no signs of gross trauma or deformity. Active full range of motion of all extremities. Neuro: Cranial nerves II through XII intact, no focal neurological deficits. Skin: Clean dry and intact with no rash, purpura, petechiae, vesicles or pustules. Backs/flank: No CVA tenderness, no midline spinal tenderness, no deformity. Psych: Normal mood and affect. No SI, HI or acute psychosis. Const Vital Signs: 12/25/23 16:00 Temperature 96.5 F L Temperature Source Temporal Pulse Rate 86 Respiratory Rate 16 Blood Pressure 129/82 H Blood Pressure Mean 97 Pulse Ox 98 Oxygen Delivery Method Room Air [facility] Treatment and Re-Evaluation :: Differential diagnosis includes however is not limited to: Dental fracture, angioedema, strep throat, pharyngitis, dental caries Upon my initial evaluation, there is no significant symptoms to suspect any deep tissue infection. Patient had no abscess formation. Patient does have some pain that is rating to her teeth. At this time, patient be treated with anti- inflammatories as well as Pen-Vee K. She will need to follow-up with ear nose throat if this consists. Patient is happy with the plan of care, all questions answered, instructed return for any worsening symptoms. Physical examination here no red flag signs. Discharge Plan Triage Chief Complaint: Sore Throat Other Complaint: Headache ED Midlevel Provider: Justo Rob ED Provider: Yasemin Mckeon Dx/Rx/DC Orders Clinical Impression: Acute pain of mouth Instructions: Measuring Your Pain, ED Dental Cavity Prescriptions: New penicillin V potassium 500 mg tablet 500 mg PO 4X/DAY 7 Days Qty: 28 0RF naproxen [Naprosyn] 500 mg tablet 500 mg PO BID PRN (Reason: pain) Qty: 20 0RF No Action norgestimate-ethinyl estradiol [Sprintec (28)] 0.25-35 mg-mcg Tablet 1 tab PO DAILY cephalexin [cephalexin] 500 mg capsule 500 mg PO Q6 Qty: 12 0RF amoxicillin-pot clavulanate 875-125 mg tablet 1 tab PO BID 10 Days Qty: 20 0RF Primary Care Provider: Care Physician,No Primary Referrals: Jacobo Monte MD [Med Staff - Active Staff] - Care Physician,No Primary [Primary Care Provider] - Activity Restrictions/Additional Instructions: Take antibiotics until finished. Disposition Disposition: Home, Self Care
--- OUTSIDE RECORDS SUMMARY | 2023-12-25 16:40 | XMS RPT_ITS | CCD ---
Author Name Unknown Address [address] [place] [address] Organization [facility] Care Team Providers Care Funeral Director/Embalmer/Owner Name Role Phone Meri Rudolph Unavailable Unavailable Meri Rudolph Unavailable Unavailable RASHEED BLANKENSHIP Attending Unavailable Older [employer] C[employer]OM HA[employer] PIECE CONSULTANT.Mehreen ALBA Primary Care Provider Older [employer] C[employer] HA[employer] PIECE CONSULTANT.Mehreen ALBA Primary Care Provider Unavailable Primary Care Provider Unavailorquidea burrell OLDER, MEHREEN Primary Care Unavailable MARINE HASSAN Referring Unavailable OLDER, MEHREEN Primary Care Unavailable OLDER, MEHREEN Primary Care Unavailable Medications Current Medications Medication Drug Class(es) Dates Sig (Normalized) Sig (Original) amoxicillin 875 mg / clavulanate 125 mg oral tablet (2 sources) Penicillin-class Antibacterial Start: 08-19-2022 End: 08-24-2022 take 1 tablet by mouth twice daily amoxicillin-clav ulanic acid (AUGMENTIN) 875-125 mg per tablet Take 1 tablet by mouth twice daily for 5 days. 10 tablet 0 08/19/2022 08/24/2022 Active Completed/Discontinued Medications Medication Drug Class(es) Dates Sig (Normalized) Sig (Original) adapalene 0.003 mg/mg / benzoyl peroxide 0.025 mg/mg topical gel (8 sources) Retinoid Start: 07-22-2018 adapalene-benzoyl peroxide (EPIDUO FORTE) 0.3-2.5 % glwp Indications: Acne vulgaris Apply to the face qhs 1 Pump 3 07/22/2018 Active Problems Active Problems Problem Classification Problem Date Documented Date Episodic/Chronic Anxiety disorders (8 sources) Anxiety; Translations: [Anxiety disorder, unspecified] Onset: 09-12-2013 09-12-2013 Chronic Attention-deficit, conduct, and disruptive behavior disorders (8 sources) Attention deficit hyperactivity disorder, combined type; Translations: [Attention-deficit hyperactivity disorder, combined type] Onset: 02-27-2013 02-27-2013 Chronic Disorders of teeth and jaw (1 source) Infection of tooth; Translations: [Periapical abscess without sinus] Episodic Headache; including migraine (1 source) Migraine; Translations: [Migraine, unspecified, not intractable, without status migrainosus] Chronic Immunizations and screening for infectious disease (1 source) Suspected disease caused by 2019-nCoV; Translations: [Suspected COVID-19 virus infection] Episodic Other female genital disorders (1 source) Vaginal discharge; Translations: [Other specified noninflammatory disorders of vagina] Episodic Other upper respiratory infections (2 sources) Pharyngitis; Translations: [Acute pharyngitis, unspecified] Episodic Residual codes; unclassified (1 source) Procedure not done; Translations: [Procedure and treatment not carried out, unspecified reason] Episodic Unclassified (1 source) Unknown / UNK(Unknown) Onset: 08-30-2018 Unclassified (1 source) Suspected COVID-19 virus infection; Translations: [Suspected COVID-19 virus infection] Onset: 05-20-2022 Viral infection (2 sources) Viral disease; Translations: [Viral infection, unspecified] Episodic Past or Other Problems Problem Classification Problem Date Documented Da te Episodic/Chronic Other nutritional; endocrine; and metabolic disorders (8 sources) Childhood obesity; Translations: [Overweight] Onset: 05-29-2015 05-29-2015 Episodic Unclassified (1 source) URINARY BURNING Onset: 08-30-2018 Results Test Name Value Interpretation Reference Range Facil ity Vital Signs Date Time Vital Sign Value Performing Clinician Nevin contreras 12-24-2023 17:00-0500 Body temperature 98.6 [degF] Marine Hassan APRN.PARTH Work Phone: [facility] 12-24-2023 17:00-0500 Body weight 80 kg Marine Hassan APRN.CNP Work Phone: [facility] 12-24-2023 17:00-0500 Diastolic blood pressure 80 mm[Hg] Marine Hassan APRN.PARTH Work Phone: [facility] 12-24-2023 17:00-0500 Heart rate 72 /min Marine Pendlebury [employer] C[employer] HA[employer] PIECE CONSULTANT.REINSPECTOR Work Phone: [facility] 12-24-2023 17:00-0500 Respiratory rate 18 /min Marine Pendlebury [employer] HA[employer] PIECE CONSULTANT.REINSPECTOR Work Phone: [facility] 12-24-2023 17:00-0500 SaO2% (BldA) [Mass fraction] 100 % Marine Pendlebury [employer] HA[employer] PIECE CONSULTANT.REINSPECTOR Work Phone: [facility] 12-24-2023 17:00-0500 Systolic blood pressure 136 mm[Hg] Marine Pendlebury [employer] C[employer] HA[employer] PIECE CONSULTANT.REINSPECTOR Work Phone: [facility] 10-24-2022 13:18-0500 Body temperature 98.2 [degF] Tyesha Malik [employer] C[employer] HA[employer] PIECE CONSULTANT.REINSPECTOR Work Phone: [facility] 10-24-2022 13:18-0500 Body weight 79.02 kg Tyesha Malik [employer] C[employer] HA[employer] PIECE CONSULTANT.REINSPECTOR Work Phone: [facility] 10-24-2022 13:18-0500 Diastolic blood pressure 82 mm[Hg] Tyesha Malik [employer] C[employer]OM HA[employer] PIECE CONSULTANT.REINSPECTOR Work Phone: [facility] 10-24-2022 13:18-0500 Heart rate 90 /min Tyesha Malik [employer] C[employer]OM HA[employer] PIECE CONSULTANT.REINSPECTOR Work Phone: [facility] 10-24-2022 13:18-0500 Respiratory rate 21 /min Tyesha Malik [employer] C[employer]OM HAIR PIECE CONSULTANT.REINSPECTOR Work Phone: [facility] 10-24-2022 13:18-0500 SaO2% (BldA) [Mass fraction] 98 % Tyesha Malik [employer] C[employer]OM HA[employer] PIECE CONSULTANT.REINSPECTOR Work Phone: [facility] 10-24-2022 13:18-0500 Systolic blood pressure 122 mm[Hg] Tyesha Malik [employer]S C[employer]OM HAIR PIECE CONSULTANT.REINSPECTOR Work Phone: [facility] 08-19-2022 13:34-0400 Body temperature 98.2 [degF] Marine Pendlebury M[employer]S CUSTOM HAIR PIECE CONSULTANT.REINSPECTOR Work Phone: [facility] 08-19-2022 13:34-0400 Body weight 79.56 kg Marine Pendlebury M[employer]S C[employer]OM HAIR PIECE CONSULTANT.REINSPECTOR Work Phone: [facility] 08-19-2022 13:34-0400 Diastolic blood pressure 86 mm[Hg] Marine Pendlebury M[employer]S C[employer]OM HAIR PIECE CONSULTANT.REINSPECTOR Work Phone: [facility] 08-19-2022 13:34-0400 Heart rate 101 /min Marine Pendlebury M[employer]S C[employer]OM HAIR PIECE CONSULTANT.REINSPECTOR Work Phone: [facility] 08-19-2022 13:34-0400 Respiratory rate 20 /min Marine Pendlebury M[employer]S C[employer]OM HAIR PIECE CONSULTANT.REINSPECTOR Work Phone: [facility] 08-19-2022 13:34-0400 SaO2% (BldA) [Mass fraction] 99 % Marine Pendlebury M[employer]S C[employer]OM HAIR PIECE CONSULTANT.REINSPECTOR Work Phone: [facility] 08-19-2022 13:34-0400 Systolic blood pressure 124 mm[Hg] Marine Pendlebury M[employer]S C[employer]OM HAIR PIECE CONSULTANT.REINSPECTOR Work Phone: [facility] 05-20-2022 16:49-0400 Body temperature 99.1 [degF] Marine Pendlebury M[employer]S C[employer]OM HAIR PIECE CONSULTANT.REINSPECTOR Work Phone: [facility] 05-20-2022 16:49-0400 Body weight 77.11 kg Marine Pendlebury M[employer]S C[employer]OM HAIR PIECE CONSULTANT.REINSPECTOR Work Phone: [facility] 05-20-2022 16:49-0400 Diastolic blood pressure 82 mm[Hg] Marine Pendlebury M[employer]S C[employer]OM HAIR PIECE CONSULTANT.REINSPECTOR Work Phone: [facility] 05-20-2022 16:49-0400 Heart rate 86 /min Marine Pendlebury M[employer]S C[employer]OM HAIR PIECE CONSULTANT.REINSPECTOR Work Phone: [facility] 05-20-2022 16:49-0400 Respiratory rate 16 /min Marine Pendlebury M[employer]S C[employer]OM HAIR PIECE CONSULTANT.REINSPECTOR Work Phone: [facility] 05-20-2022 16:49-0400 SaO2% (BldA) [Mass fraction] 99 % Marine Pendlebury M[employer]S CUSTOM HAIR PIECE CONSULTANT.REINSPECTOR Work Phone: [facility] 05-20-2022 16:49-0400 Systolic blood pressure 120 mm[Hg] Marine Hassan APRN.CNP Work Phone: [facility] Encounters Encounter Date Encounter Type Care Provider Facility Start: 12-24-2023 End: 12-24-2023 Office outpatient visit 15 minutes Marine Hassan APRN.CNP Work Phone: [facility] Procedures Date Procedure Procedure Detail Performing Clinician Start: 12-24-2023 STREP A MOLECULAR (POC) Marine Hassan APRN.CNP Work Phone: Start: 08-19-2022 Urnls dip stick/tabl et rgnt auto w/o microscopy Marine Hassan APRN.CNP Work Phone: Start: 08-19-2022 STREP A MOLECULAR (POC) Marine Hassan APRN.CNP Work Phone: Start: 07-22-2018 Adult depression screening assessment Marine Hassan APRN.CNP Work Phone: Plan of Treatment Date Care Activity Detail Author Start: 05-28-2025 Urine microalbumin profile [facility] Start: 10-18-2023 Depression Assessment Depression Assessment [facility] Start: 06-18-2023 Covid-19 Vaccine ( season) Covid-19 Vaccine () [facility] Start: 06-18-2023 Influenza [facility]: [facility]23 Screening for malignant neoplasm of cervix Pap Testing [facility] Start: 10-18-2022 DEPRESSION ASSESSMENT DEPRESSION ASSESSMENT [facility] Start: 08-19-2022 End: 09-02-2022 Influenza virus A and B RNA and SARS-CoV-2 (COVID-19) N gene panel - Respiratory specimen by LUZMA with probe detection COVID WITH FLUA+B, ROUTINE Microbiology Routine Pharyngitis, unspecified etiology Viral illness Expected: 08/19/2022, Expires: 09/02/2022 [facility] Work Phone: Immunizations Immunization Date Immunization Notes Care Provider Manoj torres 03-25-2021 COVID-19 vaccine, ag e 12+ yr (PFIZER-BIONTECH - PURPLE TOP) Marine Hassan M[employer] CUSTOM HAIR PIECE CONSULTANT.REINSPECTOR Work Phone: [facility] Work Phone: 03-02-2021 COVID-19 vaccine, ag e 12+ yr (PFIZER-BIONTECH - PURPLE TOP) Marine Hassan [employer] C[employer]OM HAIR PIECE CONSULTANT.REINSPECTOR Work Phone: [facility] Work Phone: 07-21-2018 Human Papillomavirus 9-valent vaccine [facility] MEN'S C[employer]OM HAIR PIECE CONSULTANT.REINSPECTOR Work Phone: [facility] 07-21-2018 meningococcal polysaccharide (groups A, C, Y and W-135) diphtheria toxoid conjugate vaccine (MCV4P) [facility] C[employer] HAIR PIECE CONSULTANT.REINSPECTOR Work Phone: [facility] 05-28-2015 human papilloma viru s vaccine, quadrivalent Marinedanny Avendanojazmine [employer] C[employer]OM HAIR PIECE CONSULTANT.REINSPECTOR Work Phone: [facility] 05-28-2015 meningococcal polysaccharide (groups A, C, Y and W-135) diphtheria toxoid conjugate vaccine (MCV4P) Marinedanny Avendanojazmine [employer] C[employer]OM HAIR PIECE CONSULTANT.REINSPECTOR Work Phone: [facility] 05-28-2015 tetanus toxoid, redu linda diphtheria toxoid, and acellular pertussis vaccine, adsorbed [facility] HAIR PIECE CONSULTANT.REINSPECTOR Work Phone: [facility] 03-25-2007 diphtheria, tetanus toxoids and acellular pertussis vaccine [facility] MEN'S C[employer]OM HAIR PIECE CONSULTANT.REINSPECTOR Work Phone: [facility] 03-25-2007 measles, mumps, rube lla, and varicella virus vaccine [facility] MEN'S C[employer]OM HAIR PIECE CONSULTANT.REINSPECTOR Work Phone: [facility] 03-25-2007 poliovirus vaccine, inactivated [facility] MEN'S C[employer]OM HAIR PIECE CONSULTANT.REINSPECTOR Work Phone: [facility] 03-25-2006 haemophilus influenz ae type b vaccine, HbOC conjugate [facility] MEN[employer]S C[employer]OM HAIR PIECE CONSULTANT.REINSPECTOR Work Phone: [facility] Work Phone: 09-20-2003 diphtheria, tetanus toxoids and acellular pertussis vaccine Marine Hassan M[employer]S C[employer]OM HAIR PIECE CONSULTANT.REINSPECTOR Work Phone: [facility] Work Phone: 09-20-2003 influenza virus vacc ine, unspecified formulation Marine Hassan MEN'S CUSTOM HAIR PIECE CONSULTANT.[facility] Work Phone: [facility] Work Phone: 09-20-2003 pneumococcal conjuga te vaccine, 7 valent Marine Hassan MEN'S CUSTOM HAIR PIECE CONSULTANT.[facility] Work Phone: [facility] Work Phone: 07-10-2003 measles, mumps and rubella virus vaccine Marine Hassan MEN'S CUSTOM HAIR PIECE CONSULTANT.[facility] Work Phone: [facility] Work Phone: 07-10-2003 pneumococcal conjuga te vaccine, 7 valent Marine Hassan MEN'S CUSTOM HAIR PIECE CONSULTANT.[facility] Work Phone: [facility] Work Phone: 07-10-2003 poliovirus vaccine, inactivated Marine Hassan MEN'S CUSTOM HAIR PIECE CONSULTANT.[facility] Work Phone: [facility] Work Phone: 07-10-2003 varicella virus vaccine Abdoul danny Hassan MEN'S CUSTOM HAIR PIECE CONSULTANT.[facility] Work Phone: [facility] Work Phone: 01-27-2003 diphtheria, tetanus toxoids and acellular pertussis vaccine Marine Hassan MEN'S CUSTOM HAIR PIECE CONSULTANT.[facility] Work Phone: [facility] Work Phone: 01-27-2003 haemophilus influenz ae type b vaccine, HbOC conjugate Marine Hassan MEN'S CUSTOM HAIR PIECE CONSULTANT.[facility] Work Phone: [facility] Work Phone: 01-27-2003 hepatitis B vaccine, pediatric or pediatric/adolescent dosage Marine Hassan MEN'S CUSTOM HAIR PIECE CONSULTANT.[facility] Work Phone: [facility] Work Phone: 01-27-2003 pneumococcal conjuga te vaccine, 7 valent Marine Pendlebury MEN'S CUSTOM HAIR PIECE CONSULTANT.[facility] Work Phone: [facility] Work Phone: 2002 diphtheria, tetanus toxoids and acellular pertussis vaccine Marine Pendlebury MEN'S CUSTOM HAIR PIECE CONSULTANT.[facility] Work Phone: [facility] Work Phone: 2002 haemophilus influenz ae type b vaccine, HbOC conjugate [facility] C[employer] HAIR PIECE CONSULTANT.REINSPECTOR Work Phone: [facility] Work Phone: 2002 pneumococcal conjuga te vaccine, 7 valent Marine Pendlebury MEN'S CUSTOM HAIR PIECE CONSULTANT.[facility] Work Phone: [facility] Work Phone: 2002 poliovirus vaccine, inactivated Marine Pendlebury MEN'S CUSTOM HAIR PIECE CONSULTANT.[facility] Work Phone: [facility] Work Phone: 2002 diphtheria, tetanus toxoids and acellular pertussis vaccine Marine Pendlebury MEN'S CUSTOM HAIR PIECE CONSULTANT.[facility] Work Phone: [facility] Work Phone: 2002 haemophilus influenz ae type b vaccine, HbOC conjugate [facility] C[facility] HAIR PIECE CONSULTANT.[facility] Work Phone: [facility] Work Phone: 2002 poliovirus vaccine, inactivated Marine Pendlebury MEN'S CUSTOM HAIR PIECE CONSULTANT.[facility] Work Phone: [facility] Work Phone: 2002 hepatitis B vaccine, pediatric or pediatric/adolescent dosage Marine Pendlebury MEN'S CUSTOM HAIR PIECE CONSULTANT.[facility] Work Phone: [facility] Work Phone: 2002 hepatitis B vaccine, pediatric or pediatric/adolescent dosage Marine Pendlebury MEN'S CUSTOM HAIR PIECE CONSULTANT.[facility] Work Phone: [facility] Work Phone: Payers Date Payer Category Payer Unknown [id number] 2017 Unknown [id number] 2017 Unknown [employer] PPO OOS [id number] 2017-Present [phone] [address] [place] [address] PPO [id number] 1984 Unknown [id number] Unknown [id number] Unknown [id number] Social History Date Type Detail Facility Start: 08-19-2022 Tobacco smoking stat [facility] Never smoked tobacco [facility] Work Phone: Start: 05-20-2022 End: 12-24-2023 Alcohol intake Current non-drinker of alcohol (finding) [facility] Start: 2002 Sex Assigned At Not on file [facility] Start: 05-10-2022 End: 08-19-2022 Exposure to SARS-CoV-2 (event) Not sure [facility] Start: 08-19-2022 Tobacco use and exposure Smokeless tobacco non-user [facility] Start: 11-21-2022 End: 12-24-2023 History of Social function [facility] Start: 11-21-2022 End: 12-24-2023 Tobacco use panel [facility] National Score (1-100), lower number is lower risk 96 [facility] Start: 2002 [facility] Start: 11-06-2022 Gender identity Identifies as female gender (finding) [facility] Clinical Notes 05-20-2022 to 12-24-2023 Marine Hassan APRN.REINSPECTOR - 12/24/2023 5:09 PM Benito Malik APRN.REINSPECTOR - 10/24/2022 1:40 PM Mayo Hassan APRN.REINSPECTOR - 09/11/2022 3:40 PM ESTPatient InstructionsPatient Instructions Note Date & Type Note Facility 12-24-2023 History of Presen t illness Narrative Subjective HPI Nontoxic-appearing female presents urgent care chief complaint sore throat nasal congestion sinus pressure. Duration of symptoms 3 days. Associated symptoms listed above. Most bothersome symptom today is sore throat. Sick contact similar signs symptoms. No OTC medication use today. No difficulty swallowing and secretions decreased range of motion of neck. Denies any fever body aches chills productive cough chest pain shortness of breath pleuritic pain hemoptysis nausea vomiting abdominal pain change in bowel or bladder habits. Past medical history prescription medication use and allergies reviewed. BP 136/80 Pulse 72 Temp 37 C (98.6 F) Resp 18 Wt 80 kg (176 lb 5.9 oz) LMP 07/27/2022 (Within Days) SpO2 100% .Patient presents with: Sore Throat: Roof of mouth painful x3 days, sinus drainage PAST MEDICAL HISTORY Diagnosis Date Attention deficit disorder with hyperactivity(314.01) Menarche 10/31 NEGATIVE MEDICAL HISTORY normal color vision PAST SURGICAL HISTORY Procedure Laterality Date NONE ALLERGIES Patient has no known allergies. MEDICATIONS fluoxetine HCl (PROZAC ORAL) Take by mouth. (Patient not taking: Reported on 10/24/2022) famotidine (PEPCID) 20 mg tablet Take 1 tablet by mouth at bedtime as needed. potassium chloride (KLOR-CON 10) 10 mEq tablet Take 2 tablets by mouth daily with breakfast. (Patient not taking: Reported on 10/10/2021 ) Norethindrone Acet-Ethinyl Est (JUNEL 11/06, ,) 1-20 mg-mcg per tablet Take 1 tablet by mouth once daily. (Patient not taking: Reported on 04/22/2021 ) adapalene-benzoyl peroxide (EPIDUO FORTE) 0.3-2.5 % glwp Apply to the face qhs (Patient not taking: Reported on 04/09/2020 ) Doxycycline Monohydrate (ORACEA) 40 mg capsule One tab po daily for 3 months. Dispense generic. (Patient not taking: Reported on 04/09/2020 ) ranitidine (ZANTAC) 150 mg tablet Take 1 tablet by mouth twice daily. FAMILY HISTORY Problem Relation Age of Onset No Known Problems Sister No Known Problems Sister No Known Problems Mother Heart Father mitrovalve prolapse No Known Problems Maternal Grandmother No Known Problems Maternal Grandfather other (Other) Paternal Grandmother MVA None Other No Known Problems Brother Social History Tobacco Use Smoking status: Never Smokeless tobacco: Never Vaping Use Vaping Use: Never used Substance Use Topics Alcohol use: No Drug use: No Review of Systems Constitutional: Negative for chills, fever and malaise/fatigue. HENT: Positive for congestion and sore throat. Negative for ear discharge, ear pain and sinus pain. Eyes: Negative for blurred vision, pain, discharge and redness. Respiratory: Negative for cough, hemoptysis, sputum production, shortness of breath, wheezing and stridor. Cardiovascular: Negative for chest pain. Gastrointestinal: Negative for abdominal pain, diarrhea, nausea and vomiting. Musculoskeletal: Negative for myalgias. Skin: Negative for itching and rash. Neurological: Negative for dizziness and headaches. Objective Physical Exam Constitutional: General: She is not in acute distress. Appearance: She is not diaphoretic. HENT: Head: Normocephalic. Jaw: No trismus, tenderness, swelling or pain on movement. Right Ear: Tympanic membrane, ear canal and external ear normal. Left Ear: Tympanic membrane, ear canal and external ear normal. Nose: Congestion present. Mouth/Throat: Mouth: Mucous membranes are moist. Pharynx: Oropharynx is clear. Uvula midline. No pharyngeal swelling, oropharyngeal exudate, posterior oropharyngeal erythema or uvula swelling. Eyes: Conjunctiva/sclera: Conjunctivae normal. Pupils: Pupils are equal, round, and reactive to light. Cardiovascular: Rate and Rhythm: Normal rate and regular rhythm. Heart sounds: Normal heart sounds. Pulmonary: Effort: Pulmonary effort is normal. No tachypnea, accessory muscle usage or respiratory distress. Breath sounds: Normal breath sounds. No stridor. No wheezing, rhonchi or rales. Abdominal: General: There is no distension. Palpations: Abdomen is soft. Tenderness: There is no abdominal tenderness. There is no guarding or rebound. Musculoskeletal: Cervical back: Normal range of motion and neck supple. No edema, erythema, rigidity or tenderness. No pain with movement. Normal range of motion. Lymphadenopathy: Cervical: No cervical adenopathy. Skin: General: Skin is warm and dry. Neurological: Mental Status: She is alert and oriented to person, place, and time. ASSESSMENT/PLAN: 1. Pharyngitis, unspecified etiology - ICD9: 462, ICD10: J02.9 (primary diagnosis) - STREP A MOLECULAR (POC) 2. Viral illness - ICD9: 079.99, ICD10: B34.9 No abnormal findings noted on ENT assessment. Suspicious of viral etiology. Patient was educated on supportive therapies. Patient will follow up with primary care provider as needed. Patient was instructed to immediately proceed to emergency room for any new, worsening, or symptoms lasting longer than anticipated. The patient's clinical presentation is otherwise unremarkable at this time. Based on exam and clinical finding, the patient is stable for discharge. Plan of care was discussed with patient. Patient verbalizes understanding and agrees to plan of care. This note was generated using 60mo software. It may contain errors in wording, punctuation, or spelling. Marine Hassan APRN.REINSPECTOR documented in this encounter [facility] 10-24-2022 Note HNO ID: [id number] Author: Tyesha Malik APRN.REINSPECTOR Service: ? Author Type: Nurse Practitioner Type: Progress Notes Filed: 10/24/2022 3:40 PM Note Text: This note was created using Vanu. Subjective Tommy Blount is a 22 year old female. 22 year old female with PMH depression, anxiety, and ADHD presents for illness. Acute onset over the past few days Although in further discussion this has been an ongoing thing States she has had similar episodes for approximately a year + whole head pressure Endorses pain radiates down into neck +light sensitivity. +phonophobia +nausea Denies unilateral weakness. Denies worst headache of life, unilateral weakness, sudden clap, or Has used Ibuprofen yesterday. The history is provided by the patient. No soc analyst was used. Headache This is a recurrent problem. The current episode started more than 2 days ago. The problem occurs constantly. The problem has not changed since onset.The headache is associated with bright light. Pain location: generalized The quality of the pain is described as dull and throbbing. The pain is at a severity of 7/10. The pain is moderate. Radiates to: posterior neck. Associated symptoms include nausea. Pertinent negatives include no anorexia, no fever, no malaise/fatigue, no chest pressure, no near-syncope, no orthopnea, no palpitations, no syncope, no shortness of breath and no vomiting. She has tried NSAIDs for the symptoms. The treatment provided no relief. PAST MEDICAL HISTORY Diagnosis Date Attention deficit disorder with hyperactivity(314.01) Menarche 10/31 NEGATIVE MEDICAL HISTORY normal color vision PAST SURGICAL HISTORY Procedure Laterality Date NONE ALLERGIES Patient has no known allergies. MEDICATIONS fluoxetine HCl (PROZAC ORAL) Take by mouth. (Patient not taking: Reported on 10/24/2022) famotidine (PEPCID) 20 mg tablet Take 1 tablet by mouth at bedtime as needed. potassium chloride (KLOR-CON 10) 10 mEq tablet Take 2 tablets by mouth daily with breakfast. (Patient not taking: Reported on 10/10/2021 ) Norethindrone Acet-Ethinyl Est (JUNEL 11/06, ,) 1-20 mg-mcg per tablet Take 1 tablet by mouth once daily. (Patient not taking: Reported on 04/22/2021 ) adapalene-benzoyl peroxide (EPIDUO FORTE) 0.3-2.5 % glwp Apply to the face qhs (Patient not taking: Reported on 04/09/2020 ) Doxycycline Monohydrate (ORACEA) 40 mg capsule One tab po daily for 3 months. Dispense generic. (Patient not taking: Reported on 04/09/2020 ) ranitidine (ZANTAC) 150 mg tablet Take 1 tablet by mouth twice daily. FAMILY HISTORY Problem Relation Age of Onset No Known Problems Sister No Known Problems Sister No Known Problems Mother Heart Father mitrovalve prolapse No Known Problems Maternal Grandmother No Known Problems Maternal Grandfather other (Other) Paternal Grandmother MVA None Other No Known Problems Brother Social History Tobacco Use Smoking status: Never Smokeless tobacco: Never Vaping Use Vaping Use: Never used Substance Use Topics Alcohol use: No Drug use: No Review of Systems Constitutional: Negative for fever and malaise/fatigue. Eyes: Negative for pain, discharge and itching. Respiratory: Negative for apnea, cough, choking, chest tightness and shortness of breath. Cardiovascular: Negative for chest pain, palpitations, orthopnea, leg swelling, syncope and near-syncope. Gastrointestinal: Positive for nausea. Negative for abdominal pain, anorexia and vomiting. Musculoskeletal: Negative for arthralgias, back pain and gait problem. Skin: Negative for color change, pallor, rash and wound. Allergic/Immunologic: Negative for environmental allergies, food allergies and immunocompromised state. Neurological: Positive for headaches. Negative for dizziness and facial asymmetry. Hematological: Negative for adenopathy. Does not bruise/bleed easily. Psychiatric/Behavioral: Negative for agitation and behavioral problems. Objective BP 122/82 Pulse 90 Temp 36.8 ?C (98.2 ?F) Resp 21 Wt 79 kg (174 lb 3.2 oz) LMP 07/27/2022 (Within Days) SpO2 98% Physical Exam Vitals and nursing note reviewed. Constitutional: General: She is not in acute distress. Appearance: Normal appearance. She is normal weight. She is not ill-appearing, toxic-appearing or diaphoretic. HENT: Head: Normocephalic and atraumatic. Right Ear: Ear canal and external ear normal. Left Ear: Ear canal and external ear normal. Nose: Nose normal. No congestion or rhinorrhea. Mouth/Throat: Mouth: Mucous membranes are moist. Pharynx: No oropharyngeal exudate or posterior oropharyngeal erythema. Eyes: General: Right eye: No discharge. Left eye: No discharge. Extraocular Movements: Extraocular movements intact. Conjunctiva/sclera: Conjunctivae normal. Pupils: Pupils are equal, round, and reactive to light. Cardiovascular: Rate and Rhythm: Trina (more content not included)... [facility] 10-24-2022 History of Presen t illness Narrative This note was created using NoteWriter. Subjective Tommy Blount is a 22 year old female. 22 year old female with PMH depression, anxiety, and ADHD presents for illness. Acute onset over the past few days Although in further discussion this has been an ongoing thing States she has had similar episodes for approximately a year + whole head pressure Endorses pain radiates down into neck +light sensitivity. +phonophobia +nausea Denies unilateral weakness. Denies worst headache of life, unilateral weakness, sudden clap, or Has used Ibuprofen yesterday. The history is provided by the patient. No soc analyst was used. Headache This is a recurrent problem. The current episode started more than 2 days ago. The problem occurs constantly. The problem has not changed since onset.The headache is associated with bright light. Pain location: generalized The quality of the pain is described as dull and throbbing. The pain is at a severity of 7/10. The pain is moderate. Radiates to: posterior neck. Associated symptoms include nausea. Pertinent negatives include no anorexia, no fever, no malaise/fatigue, no chest pressure, no near-syncope, no orthopnea, no palpitations, no syncope, no shortness of breath and no vomiting. She has tried NSAIDs for the symptoms. The treatment provided no relief. PAST MEDICAL HISTORY Diagnosis Date Attention deficit disorder with hyperactivity(314.01) Menarche 10/31 NEGATIVE MEDICAL HISTORY normal color vision PAST SURGICAL HISTORY Procedure Laterality Date NONE ALLERGIES Patient has no known allergies. MEDICATIONS fluoxetine HCl (PROZAC ORAL) Take by mouth. (Patient not taking: Reported on 10/24/2022) famotidine (PEPCID) 20 mg tablet Take 1 tablet by mouth at bedtime as needed. potassium chloride (KLOR-CON 10) 10 mEq tablet Take 2 tablets by mouth daily with breakfast. (Patient not taking: Reported on 10/10/2021 ) Norethindrone Acet-Ethinyl Est (JUNE11/06, ,) 1-20 mg-mcg per tablet Take 1 tablet by mouth once daily. (Patient not taking: Reported on 04/22/2021 ) adapalene-benzoyl peroxide (EPIDUO FORTE) 0.3-2.5 % glwp Apply to the face qhs (Patient not taking: Reported on 04/09/2020 ) Doxycycline Monohydrate (ORACEA) 40 mg capsule One tab po daily for 3 months. Dispense generic. (Patient not taking: Reported on 04/09/2020 ) ranitidine (ZANTAC) 150 mg tablet Take 1 tablet by mouth twice daily. FAMILY HISTORY Problem Relation Age of Onset No Known Problems Sister No Known Problems Sister No Known Problems Mother Heart Father mitrovalve prolapse No Known Problems Maternal Grandmother No Known Problems Maternal Grandfather other (Other) Paternal Grandmother MVA None Other No Known Problems Brother Social History Tobacco Use Smoking status: Never Smokeless tobacco: Never Vaping Use Vaping Use: Never used Substance Use Topics Alcohol use: No Drug use: No Review of Systems Constitutional: Negative for fever and malaise/fatigue. Eyes: Negative for pain, discharge and itching. Respiratory: Negative for apnea, cough, choking, chest tightness and shortness of breath. Cardiovascular: Negative for chest pain, palpitations, orthopnea, leg swelling, syncope and near-syncope. Gastrointestinal: Positive for nausea. Negative for abdominal pain, anorexia and vomiting. Musculoskeletal: Negative for arthralgias, back pain and gait problem. Skin: Negative for color change, pallor, rash and wound. Allergic/Immunologic: Negative for environmental allergies, food allergies and immunocompromised state. Neurological: Positive for headaches. Negative for dizziness and facial asymmetry. Hematological: Negative for adenopathy. Does not bruise/bleed easily. Psychiatric/Behavioral: Negative for agitation and behavioral problems. Objective BP 122/82 Pulse 90 Temp 36.8 C (98.2 F) Resp 21 Wt 79 kg (174 lb 3.2 oz) LMP 07/27/2022 (Within Days) SpO2 98% Physical Exam Vitals and nursing note reviewed. Constitutional: General: She is not in acute distress. Appearance: Normal appearance. She is normal weight. She is not ill-appearing, toxic-appearing or diaphoretic. HENT: Head: Normocephalic and atraumatic. Right Ear: Ear canal and external ear normal. Left Ear: Ear canal and external ear normal. Nose: Nose normal. No congestion or rhinorrhea. Mouth/Throat: Mouth: Mucous membranes are moist. Pharynx: No oropharyngeal exudate or posterior oropharyngeal erythema. Eyes: General: Right eye: No discharge. Left eye: No discharge. Extraocular Movements: Extraocular movements intact. Conjunctiva/sclera: Conjunctivae normal. Pupils: Pupils are equal, round, and reactive to light. Cardiovascular: Rate and Rhythm: Normal rate and regular rhythm. Pulses: Normal pulses. Heart sounds: Normal heart sounds. No murmur heard. No friction rub. Pulmonary: Effort: Pulmonary effort is normal. No respiratory distress. Breath sounds: Normal breath sounds. No stridor. No wheezing, rhonchi or rales. Chest: Chest wall: No tenderness. Abdominal: General: Abdomen is flat. There is no distension. Palpations: Abdomen is soft. There is no mass. Tenderness: There is no abdominal tenderness. There is no right CVA tenderness, left CVA tenderness, guarding or rebound. Hernia: No hernia is present. Musculoskeletal: General: No swelling, tenderness, deformity or signs of injury. Normal range of motion. Cervical back: Normal range of motion and neck supple. No rigidity. Right lower leg: No edema. Left lower leg: No edema. Lymphadenopathy: Cervical: No cervical adenopathy. Skin: General: Skin is warm and dry. Capillary Refill: Capillary refill takes less than 2 seconds. Coloration: Skin is not jaundiced or pale. Findings: No bruising, erythema, lesion or rash. Neurological: General: No focal deficit present. Mental Status: She is alert and oriented to person, place, and time. Cranial Nerves: No cranial nerve deficit. Sensory: No sensory deficit. Motor: No weakness. Coordination: Coordination normal. Gait: Gait normal. Psychiatric: Mood and Affect: Mood normal. Behavior: Behavior normal. Thought Content: Thought content normal. Judgment: Judgment normal. Assessment and Plan ASSESSMENT/PLAN: 1. Migraine headaches - ICD9: 346.90, ICD10: G43.909 This has been an ongoing thing per patient No red flags Neuro intact - KETOROLAC 60 MG/2 ML INTRAMUSCULAR SOLUTION - ONDANSETRON 4 MG DISINTEGRATING TABLET - DIPHENHYDRAMINE 25 MG TABLET Above administered Initially rated her pain 7/10 Presently 4/10 Follow up with PCP Tyesha Malik APRN.PARTH documented in this encounter [facility] 09-11-2022 Note HNO ID: [id number] Author: Marine Hassan APRN.PARTH Service: ? Author Type: Nurse Practitioner Type: Progress Notes Filed: 09/11/2022 4:05 PM Note Text: Nontoxic-appearing female presents urgent care chief plaint abdominal pain. Duration of symptoms ongoing. Associated symptoms right lower abdominal pain. Patient states pain is worsening. Rates pain 8-9 out of 10. With palpation of right lower quadrant patient winces in discomfort. Presenting symptoms recommended seen in ED. Verbalized understand agrees with plan of care. Marine Hassan APRN.PARTH [facility] 09-11-2022 History of Presen t illness Narrative Nontoxic-appearing female presents urgent care chief plaint abdominal pain. Duration of symptoms ongoing. Associated symptoms right lower abdominal pain. Patient states pain is worsening. Rates pain 8-9 out of 10. With palpation of right lower quadrant patient winces in discomfort. Presenting symptoms recommended seen in ED. Verbalized understand agrees with plan of care. Marine Hassan APRN.CNP documented in this encounter [facility] 08-28-2022 Miscellaneous Notes I have never seen this patient, no showed establish care visit in October. I will not be able to prescribe any medications. Also not sure why I am listed as PCP since I don't have my own patient panel. Mehreen Foote APRN.PARTH Patient called stating she was prescribed different medications thru urgent care and states she had been vomiting from them. She is asking if there is something else she can try. Please call patient and advise. documented in this encounter [facility] 08-20-2022 Miscellaneous Notes Pt notified of all results & verbalized understanding. Holly Vieira LPN Let patient know her COVID and flu test are negative. Her vaginal swabs did come back positive for bacterial vaginosis and yeast. These are both not STDs. Diflucan was sent in for the yeast and Flagyl was sent in for the BV. Recommend not drinking any alcohol with the Flagyl as this will make you very ill. Follow-up with women's health provider. documented in this encounter [facility] 08-19-2022 Influenza virus A and B RNA and SARS-CoV-2 (COVID-19) N gene panel LUZMA+probe (Resp) COVID 19 RESULT: SARS-CoV-2 (Agent of COVID-19) Not Detected by RT-PCR or equivalent method. amisha [id number] (COURTNEY)_EUA This test was developed and its performance characteristics determined by [facility]'s [facility] [place]. This test has been authorized by FDA under an Emergency Use Authorization (EUA). This test has been validated in accordance with the FDA's Guidance Document Policy for Diagnostics Testing in Laboratories Certified to Perform High Complexity Testing under CLIA prior to Emergency use Authorization for Coronavirus Disease 2019 during the Public Health Emergency issued on December 16, 2019. Test performed by [facility], [facility] [place], [address] [place] [address]. INFLUENZA A PCR: Negative for Influenza A by RT-PCR INFLUENZA B PCR: Negative for Influenza B by RT-PCR [facility] Diagnosis Pharyngitis, unspecified etiology- Primary Vaginal discharge Leukorrhea, not specified as infective Viral illness Unspecified viral infection, in conditions classified elsewhere and of unspecified site Dental infection Acute apical periodontitis of pulpal origin [facility] Diagnosis Procedure not carried out- Primary Procedure not carried out for other reasons [facility] Diagnosis Migraine headaches- Primary [facility] Diagnosis Pharyngitis, unspecified etiology- Primary Viral illness Unspecified viral infection, in conditions classified elsewhere and of unspecified site documented in this encounter [facility] Summary Purpose Family History No Family History Records FoundNo Family History Records FoundNo Family History Records Found Advance Directives No Advanced Directives Records FoundNo Advanced Directives Records FoundNo Advanced Directives Records Found Health Concerns Infection Onset Date Last Indicated Resolved Time COVID-19 Rule-Out 08/19/2022 08/19/2022 Infection Onset Date Last Indicated Resolved Time COVID-19 Rule-Out 08/19/2022 08/19/2022 08/20/2022 2:34 AM EDT Medications Administered Section Inactive Administered Medications - up to 3 most recent administrations Medication Order MAR Action Action Date Dose Rate Site diphenhydrAMINE 25 mg (BENADRYL) 25 mg, ORAL, ONCE, 1 dose, On 10/24/22 at 1400 Given 10/24/2022 2:32 PM EST 25 mg keTORolac 60 mg injection (TORADOL) 60 mg, INTRAMUSCULAR, ONCE, 1 dose, On 10/24/22 at 1400, Ketorolac (Toradol) is indicated for the short-term (up to 5 days) management of moderately severe acute pain. Continuation of ketorolac (Toradol) beyond 5 days increases the risk of developing serious adverse events. Please verify the duration of therapy for ketorolac (Toradol)., If ordered PRN for pain, patient/guardian may elect to receive this medication for higher pain levels INSTEAD of the opioid, if preferred: Yes Given 10/24/2022 2:35 PM EST 60 mg Buttocks, Left ondansetron orally disintegrating 4 mg tab(s) (ZOFRAN ODT) 4 mg, ORAL, ONCE, 1 dose, On 10/24/22 at 1400, Place tablet on tongue and allow to dissolve; do not chew. Open packaging using dry hands; do not push tablet through packaging. Given 10/24/2022 2:27 PM EST 4 mg Additional Source Comments INFORMATION SOURCE (unrecogn ized section and content) DATE CREATED AUTHOR AUTHOR'S ORGANIZ ATION 02/19/2019 [facility] ([place]) DATE CREATED AUTHOR AUTHOR'S ORGANIZ ATION 11/21/2022 [facility] Source Comments (unrecognize d section and content) In the event this informatio n is protected by the Federal Confidentiality of Alcohol and Drug Abuse Patient Records regulations: The Federal rules restrict any use of the information to criminally investigate or prosecute any alcohol or drug abuse patient.[facility] the event this information is protected by the Federal Confidentiality of Alcohol and Drug Abuse Patient Records regulations: The Federal rules restrict any use of the information to criminally investigate or prosecute any alcohol or drug abuse patient.[facility] the event this information is protected by the Federal Confidentiality of Alcohol and Drug Abuse Patient Records regulations: The Federal rules restrict any use of the information to criminally investigate or prosecute any alcohol or drug abuse patient.[facility] the event this information is protected by the Federal Confidentiality of Alcohol and Drug Abuse Patient Records regulations: The Federal rules restrict any use of the information to criminally investigate or prosecute any alcohol or drug abuse patient.[facility] the event this information is protected by the Federal Confidentiality of Alcohol and Drug Abuse Patient Records regulations: The Federal rules restrict any use of the information to criminally investigate or prosecute any alcohol or drug abuse patient.[facility] the event this information is protected by the Federal Confidentiality of Alcohol and Drug Abuse Patient Records regulations: The Federal rules restrict any use of the information to criminally investigate or prosecute any alcohol or drug abuse patient.[facility] the event this information is protected by the Federal Confidentiality of Alcohol and Drug Abuse Patient Records regulations: The Federal rules restrict any use of the information to criminally investigate or prosecute any alcohol or drug abuse patient.[facility] Center[facility] the event this information is protected by the Federal Confidentiality of Alcohol and Drug Abuse Patient Records regulations: The Federal rules restrict any use of the information to criminally investigate or prosecute any alcohol or drug abuse patient.[facility] Reason for Visit (unrecogniz ed section and content) Reason Comments Results Reason Comments Sore Throat Diarrhea, chills, fe andrew, body aches x1 weekR side tooth pain x2 weeksVaginal discharge and lower abd pain x1 week Reason Comments Patient Question Reason Comments Pain Head and neck pain x 1 year, light sensitivity x 2 months Specialty Diagnoses / Procedures Referred By Contac t Referred To Contact [facility] Diagnoses HEADACHE Procedures HEADACHE [facility] [address] [place] [address] Referral ID Status Reason Start Date Expiration Date V isits Requested Visits Authorized [id number] Pending Review 10/24/2022 12/23/2022 1 1 Reason Comments Sore Throat Roof of mouth painfu l x3 days, sinus drainage Specialty Diagnoses / Procedures Referred By Rolly michele Referred To Contact [facility] Diagnoses sore throat, congestion, drainage x 3 days Procedures EST SAME DAY [facility] [address] [facility] [place] [address] Referral ID Status Reason Start Date Expiration Date Visits Requested Visits Authorized [id number] Pending Review Financial Clearance Required - Self Pay 12/24/2023 03/23/2024 1 1 Care Teams (unrecognized sec tion and content) Funeral Director/Embalmer/Owner Relationship Specialty Start Date End Date OlderMehreen, [employer] CONSULTANT.REINSPECTOR [address] [place], [place] [id number] PCP - General Internal Medicine 09/15/21 Funeral Director/Embalmer/Owner Relationship Specialty Start Date End Date OlderMehreen, [employer] P[employer] CONSULTANT.REINSPECTOR [address] [place], [place] [id number] PCP - General Internal Medicine 09/15/21 Funeral Director/Embalmer/Owner Relationship Specialty Start Date End Date Older, Mehreen, [employer] CONSULTANT.REINSPECTOR [address] [place], [place] [id number] PCP - General Internal Medicine 09/15/21 FOR RECORDS PERTAINING TO PATIENTS WHO ARE OR HAVE BEEN ENROLLED IN A CHEMICAL DEPENDENCY/SUBSTANCEABUSE PROGRAM, SOME INFORMATION MAY BE OMITTED. This clinical summary was aggregated from multiple sources. Caution should be exercised in using it in the provision of clinical care. This summary normalizes information from multiple sources, and as a consequence, information in this document may materially change the coding, format and clinical context of patient data. In addition, data may be omitted in some cases. CLINICAL DECISIONS SHOULD BE BASED ON THE PRIMARY CLINICAL RECORDS. [employer] [facility]. provides no warranty or guarantee of the accuracy or completeness of information in this document.
[2023-12-25] MEDS: Penicillin Vk 250 MG Tablet 500 MG PO (17:01)
== END 2023-12-25 17:07 | disposition home or self-care (01) ==
PROVIDERS: Emergency Provider Emergency Medicine; Visit Provider Emergency Medicine
DX: K13.79 Other lesions of oral mucosa (principal); J02.9 Acute pharyngitis, unspecified; R51.9 Headache, unspecified; F17.210 Nicotine dependence, cigarettes, uncomplicated
CPT/HCPCS: 99283